=== PATIENT | male | born 1990 | race American Indian/Alaskan Native ===

== ENCOUNTER 2020-07-16 08:30 | Emergency (ER) | payer SELFPAY ==
[2020-07-16 08:36] VITALS: BP 141/94
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
== END 2020-07-16 09:19 | disposition home or self-care (01) ==
LOC: ED 08:30
DX: S80.12XA Contusion of left lower leg, initial encounter (principal); V89.2XXA Person injured in unspecified motor-vehicle accident, traffic, initial encounter; Y93.89 Activity, other specified; Y92.410 Unspecified street and highway as the place of occurrence of the external cause; Y99.8 Other external cause status
CPT/HCPCS: 99282

== ENCOUNTER 2020-08-14 09:49 | Emergency (ER) | payer SELFPAY ==
[2020-08-14 10:13] VITALS: BP 180/114
--- NOTE | 2020-08-14 10:18 | Event Note ---
ED Screening Note ED Screening Note: abd pain n/v tachycardia This initial assessment/diagnostic orders/clinical plan/treatment(s) is/are subject to change based on patients health status, clinical progression and re- assessment by fellow clinical providers in the ED. Further treatment and workup at subsequent clinical providers discretion. Patient/guardian urged not to elope from the ED as their condition may be serious if not clinically assessed and managed. Initial orders include: labs ua
[2020-08-14] MEDS ORDERED: SODIUM CHLORIDE 0.9% 1000 ML 1,000 ML IV ONE ×2 (11:47→13:45)
[2020-08-14] MEDS ORDERED: ONDANSETRON 4 MG/2 ML INJ IV ONE (11:48)
--- NOTE | 2020-08-14 11:49 | Emergency Department Report ---
ED Abdominal Pain HPI - General Chief Complaint: Abdominal Pain Stated Complaint: ABDOMINAL PAIN PUI?: No Time Seen by Provider: 08/14/20 10:18 Source: patient Mode of arrival: Ambulatory Limitations: No Limitations - History of Present Illness Initial Comments: Mr. Sheets is a 30-year-old -[place] male comes to the emergency today complaining of nausea vomiting diarrhea. Patient states that the only time that he has abdominal pain is with the diarrhea. He describes it as cramping. Nothing seems to make it better or worse. She denies any blood in his stool. He states that she is watery. He states that he was vomiting the food that he was eating. However, now with biliary green drainage. Patient has not been around anybody with known illness. He did not eat any food that would be thought to be cause. Patient denies any penile discharge, dysuria or back pain.He denies any cough, shortness of breath or chest pain. He denies any fever or chills. Patient was ambulatory, [id number] on arrival to [facility]. Complaint: abdominal pain -: Gradual, days(s) Migration to: no migration Quality: cramping Improves With: nothing Worsens With: nothing Associated Symptoms: nausea, vomiting, diarrhea - Related Data Previous Rx's Medication Instructions Recorded Last Taken Type Ondansetron [Zofran Odt] 4 mg PO Q8HR PRN #10 tab.rapdis 08/14/20 Unknown Rx Allergies Allergy/AdvReac Type Severity Reaction Status Date / Time No Known Allergies Allergy Unverified 08/14/20 10:13 ED Review of Systems ROS: Stated complaint: ABDOMINAL PAIN Other details as noted in HPI Comment: All other systems reviewed and negative ED Past Medical Hx - Past Medical History Previous Medical History?: No - Surgical History Past Surgical History?: No - Family History Family history: no significant - Social History Smoking Status: Current Every Day Smoker Substance Use Type: Marijuana - Medications Home Medications: Home Medications Medication Instructions Recorded Confirmed Last Taken Type Ondansetron [Zofran Odt] 4 mg PO Q8HR PRN #10 tab.rapdis 08/14/20 Unknown Rx ED Physical Exam - General Limitations: No Limitations General appearance: alert, in no apparent distress - Head Head exam: Present: atraumatic, normocephalic - Eye Eye exam: Present: normal appearance - ENT ENT exam: Present: mucous membranes moist - Neck Neck exam: Present: normal inspection - Respiratory Respiratory exam: Present: normal lung sounds bilaterally. Absent: respiratory distress - Cardiovascular Cardiovascular Exam: Present: regular rate, normal rhythm, tachycardia. Absent: systolic murmur, diastolic murmur, rubs, gallop - GI/Abdominal GI/Abdominal exam: Present: soft, normal bowel sounds - Rectal Rectal exam: Present: deferred - Extremities Exam Extremities exam: Present: normal inspection - Back Exam Back exam: Present: normal inspection - Neurological Exam Neurological exam: Present: alert, oriented X3 - Psychiatric Psychiatric exam: Present: normal affect, normal mood - Skin Skin exam: Present: warm, dry, intact, normal color. Absent: rash ED Course Vital Signs 08/14/20 08/14/20 10:11 12:29 Temperature 98.4 F Pulse Rate 125 H Respiratory 16 18 Rate Blood Pressure 180/114 O2 Sat by Pulse 99 Oximetry - Reevaluation(s) Reevaluation #1: 08/14/20 1500 Rate on reexam 90. BP by provider 140/80 Patient taking p.o. Repeat lactate cleared ED Medical Decision Making - Lab Data Result diagrams: 08/14/20 11:58 08/14/20 11:58 - Radiology Data Radiology results: report reviewed, image reviewed No acute process - Medical Decision Making Vital Signs (72 hours) 08/14/20 08/14/20 10:11 12:29 Temperature 98.4 F Pulse Rate 125 H Respiratory 16 18 Rate Blood Pressure 180/114 O2 Sat by Pulse 99 Oximetry Labs 08/14/20 08/14/20 08/14/20 11:58 11:58 11:58 WBC 7.5 RBC 5.38 H Hgb 16.7 H Hct 49.3 H MCV 92 MCH 31 MCHC 34 RDW 13.6 Plt Count 227 Lymph % (Auto) 15.8 [place] % (Auto) 7.4 H Eos % (Auto) 0.4 Baso % (Auto) 0.9 Lymph # (Auto) 1.2 [place] # (Auto) 0.6 Eos # (Auto) 0.0 Baso # (Auto) 0.1 Seg Neutrophils % 75.5 H Seg Neutrophils # 5.7 Sodium 137 Potassium 3.8 Chloride 97.8 L Carbon Dioxide 28 Anion Gap 15 BUN 13 Creatinine 1.0 Estimated GFR > 60 BUN/Creatinine Ratio 13 Glucose 84 Lactic Acid 2.50 H* Calcium 9.7 Total Bilirubin 0.50 AST 19 ALT 12 Alkaline Phosphatase 59 Total Protein 8.3 H Albumin 5.0 Albumin/Globulin Ratio 1.5 Lipase 15 Urine Color Urine Turbidity Urine pH Ur Specific [place] Urine Protein Urine Glucose (UA) Urine Ketones Urine Blood Urine Nitrite Urine Bilirubin Urine Urobilinogen Ur Leukocyte Esterase Urine WBC (Auto) Urine RBC (Auto) Urine Mucus 08/14/20 13:41 WBC RBC Hgb Hct MCV MCH MCHC RDW Plt Count Lymph % (Auto) [place] % (Auto) Eos % (Auto) Baso % (Auto) Lymph # (Auto) [place] # (Auto) Eos # (Auto) Baso # (Auto) Seg Neutrophils % Seg Neutrophils # Sodium Potassium Chloride Carbon Dioxide Anion Gap BUN Creatinine Estimated GFR BUN/Creatinine Ratio Glucose Lactic Acid Calcium Total Bilirubin AST ALT Alkaline Phosphatase Total Protein Albumin Albumin/Globulin Ratio Lipase Urine Color Yellow Urine Turbidity Clear Urine pH 6.0 Ur Specific [place] 1.019 Urine Protein <15 mg/dl Urine Glucose (UA) Neg Urine Ketones 20 Urine Blood Neg Urine Nitrite Neg Urine Bilirubin Neg Urine Urobilinogen < 2.0 Ur Leukocyte Esterase Neg Urine WBC (Auto) 1.0 Urine RBC (Auto) 8.0 Urine Mucus Few Labs noted. UA noted. Chest x-ray noted. Given lactate. Patient was scanned. Scan is negative for any acute process. Patient was hydrated in the emergency room. On reassessment he is ambulatory, asking to leave and taking p.o. He states that he feels much better. He has had no nausea vomiting or diarrhea since in the emergency room. Patient being discharged to home with discharge plan of care including follow- up, medications, activity and diet. He verbalizes understanding. - Differential Diagnosis gastroenteritis; choley.; uri Critical care attestation.: If time is entered above; I have spent that time in minutes in the direct care of this critically ill patient, excluding procedure time. ED Disposition Clinical Impression: Gastroenteritis Disposition: -01 TO HOME OR SELFCARE Is pt being admited?: No Does the pt Need Aspirin: No Condition: Stable Instructions: Viral Gastroenteritis, Adult, [id number] Additional Instructions: BLAND DIET- BANANA RICE APPLESAUCE TOAST ADVANCE TOLERATED MED ORDERED TODAY FOR NAUSEA DRINK A LOT OF WATER AND GATORADE AVOID SPICY FOOD OR ALCOHOL FOLLOW UP WITH PCP IN 48-72 HOURS TO BE REEVALUATED TO BE SURE YOU ARE GETTING BETTER MOTRIN OR TYLENOL FOR PAIN OR FEVER CT SCAN NORMAL TODAY Prescriptions: Ondansetron [Zofran Odt] 4 mg PO Q8HR PRN #10 tab.rapdis PRN Reason: Vomiting Referrals: RIP CLAY MD [Staff Physician] - 3-5 Days Forms: Work/School Release Form(ED) Time of Disposition: 14:40
[2020-08-14 12:45] LABS: Basophils # (Auto) 0.1 K/mm3 (0.0-0.1); Basophils % (Auto) 0.9 % (0.0-1.8); Eosinophils % (Auto) 0.4 % (0.0-4.3); Hematocrit 49.3 % (35.5-45.6); Hemoglobin 16.7 gm/dl (11.8-15.2); Lymphocytes # (Auto) 1.2 K/mm3 (1.2-5.4); Lymphocytes % (Auto) 15.8 % (13.4-35.0); Mean Corpuscular HGB Conc 34 % (32-34); Mean Corpuscular Volume 92 fl (84-94); Monocytes # (Auto) 0.6 K/mm3 (0.0-0.8); Monocytes % (Auto) 7.4 % (0.0-7.3); Platelet Count 227 K/mm3 (140-440); Red Blood Count 5.38 M/mm3 (3.65-5.03); Red Cell Distribution Width 13.6 % (13.2-15.2)
[2020-08-14 13:08] LABS: Alanine Aminotransferase 12 units/L (7-56); BUN/Creatinine Ratio 13; Blood Urea Nitrogen 13 mg/dL (9-20); Calcium 9.7 mg/dL (8.4-10.2); Hemolysis Index 13
[2020-08-14] MEDS ORDERED: CEFEPIME/NS 2 GM/100 ML 2 GM/100 ML BAG IV ONE (13:46)
[2020-08-14 13:56] LABS: Bilirubin,Urine NEG (Negative); Blood,Urine NEG (Negative); Color,Urine Yellow (Yellow); Mucus,Urine FEW /HPF; Protein,Urine <15 mg/dL mg/dL (Negative); Urobilinogen,Urine < 2.0 mg/dL (<2.0)
--- NOTE | 2020-08-14 14:44 | Cat Scan Report ---
CT ABDOMEN AND PELVIS WITH CONTRAST HISTORY: Abdominal pain, increased lactic acid level COMPARISON: None TECHNIQUE: Routine abdominal and pelvic CT exam performed following intravenous contrast administrat ion.. All CT scans at this location are performed using CT dose reduction for ALARA by means of autom ated exposure control. FINDINGS: CT ABDOMEN: Lung Bases: No significant abnormality. Liver: No significant abnormality. Biliary: No significant abnormality. Spleen: No significant abnormality. Unenlarged. Pancreas: No significant abnormality. Adrenals: No significant abnormality. Kidneys: There is a 1.5 cm cyst in the medial right kidney. Lymphatics: No lymphadenopathy. Vasculature: No significant abnormality. Bowel/Peritoneum: No significant abnormality. No free air. No free fluid. Normal appendix. CT PELVIC: : No significant abnormality. Lymphatics: No lymphadenopathy. Osseous Structures: No aggressive appearing osseous lesions. Additional Findings: None IMPRESSION: 1. No acute findings. Signer Name: Robe Irizarry MD Signed: 08/14/2020 2:39 PM Workstation Name: [id number] [place]
== END 2020-08-14 15:45 | disposition home or self-care (01) ==
LOC: ED 09:49
DX: K52.9 Noninfective gastroenteritis and colitis, unspecified (principal); F17.200 Nicotine dependence, unspecified, uncomplicated; F12.10 Cannabis abuse, uncomplicated; Z79.899 Other long term (current) drug therapy
CPT/HCPCS: 36415; 74177; 80053; 81001; 82140; 83690; 85025; 87040; 87086; 96361; 96365; 96375; 99284; J0692; J2405; J7030; Q9967